=== PATIENT | male | born 2000 | race African-American/Black ===

== ENCOUNTER 2018-11-05 20:37 | Emergency (ER) | payer SELFPAY ==
[2018-11-05 21:14] VITALS: BP 124/64; PULSE 59; TEMP 98.2; BMI 22.1
--- NOTE | 2018-11-05 21:31 | PDOC ---
History of Present Illness - General Chief Complaint: Pain Stated Complaint: MOUTH PAIN Time Seen by Provider: 11/05/18 21:25 History Source: Patient - History of Present Illness Initial Comments: 11/05/18 21:35 18 year old male right upper canine dental caries reports pain for the last 3 months. patient was not evaluated by dentist due to lack of insurance. patient reports that he is insured. patient reports slight headache at this time pmhxL: 11/05/18 21:36 Past History - Past Medical History Allergies/Adverse Reactions: Allergies Allergy/AdvReac Type Severity Reaction Status Date / Time No Known Allergies Allergy Verified 11/05/18 21:14 Home Medications: Ambulatory Orders Amoxicillin - [Amoxicillin 875mg Tablet -] 875 mg PO BID #20 tablet 11/05/18 Ibuprofen [Ibu] 600 mg PO QID PRN #20 tablet 11/05/18 - Suicide/Smoking/Psychosocial Hx Smoking History: Never smoked Have you smoked in the past 12 months: No Information on smoking cessation initiated: No Hx Alcohol Use: No Drug/Substance Use Hx: No *Physical Exam - Vital Signs Last Vital Signs Temp Pulse Resp BP Pulse Ox 98.2 F 59 L 18 124/64 98 11/05/18 21:07 11/05/18 21:07 11/05/18 21:07 11/05/18 21:07 11/05/18 21:07 - Physical Exam General Appearance: Yes: Appropriately Dressed HEENT: positive: Other (fractured right upper canine with dental carries. no facial edema, gum edema) Integumentary: positive: Normal Color, Dry, Warm Neurologic: positive: boat buffer plastic II-XII NML intact, Fully Oriented, Alert, Normal Mood/ Affect, Normal Response, Motor Strength 5/5, Finger to Nose (intact), Other (no neck pain) Moderate Sedation - Procedure Monitoring Vital Signs: Procedure Monitoring Vital Signs Temperature 98.2 F 11/05/18 21:07 Pulse Rate 59 L 11/05/18 21:07 Respiratory Rate 18 11/05/18 21:07 Blood Pressure 124/64 11/05/18 21:07 O2 Sat by Pulse Oximetry (%) 98 11/05/18 21:07 *DC/Admit/Observation/Transfer Diagnosis at time of Disposition: Pain, dental, Infected dental caries - Discharge Dispostion Disposition: HOME - Prescriptions Prescriptions: Amoxicillin - [Amoxicillin 875mg Tablet -] 875 mg PO BID #20 tablet Ibuprofen [Ibu] 600 mg PO QID PRN #20 tablet PRN Reason: Pain - Referrals - Patient Instructions Printed Discharge Instructions: DI for Tooth Decay Additional Instructions: please follow up with dentist as soon as possible. - Post Discharge Activity Forms/Work/School Notes: Back to Work
[2018-11-05] MEDS ORDERED: IBUPROFEN 600 MG TABLET (FP) PO ONE ×2 (21:35→21:36)
== END 2018-11-05 21:41 | disposition home or self-care (01) ==
LOC: JERFT 20:37
DX: K08.89 Other specified disorders of teeth and supporting structures (principal)
CPT/HCPCS: 99281-25

== ENCOUNTER 2018-11-18 21:47 | Observation (INO) | payer MEDICARE ==
[2018-11-18] MEDS ORDERED: SODIUM CHLORIDE 0.9% 500 ML INFUS.BAG IV ONE (23:24)
[2018-11-18] MEDS ORDERED: ACETAMINOPHEN 1000 MG/100 ML VIAL (NON FORMULARY) IVPB ONE (23:24)
--- NOTE | 2018-11-18 23:32 | PDOC ---
History of Present Illness - General Chief Complaint: Headache Stated Complaint: Headache Time Seen by Provider: 11/18/18 23:15 History Source: Patient Exam Limitations: No Limitations - History of Present Illness Initial Comments: 11/18/18 23:25 18YOM with h/o dental caries and recently diagnosed dental infection (placed on amoxicillin and has been taking it as prescribed, on day 7, has no insurance and has not been able to f/u) who p/w continued OWEN for the past week, worse today, frontal and bitemporal and throbbing, worsens with light and noise, also with associated lightheadedness, pre-syncope, occasional palpitations, mental fogginess. Denies ever having these symptoms before. Denies f/c/n/v/d/c, dysuria , numbness/tingling/focal weakness, or other symptoms. Has no regular medical care 2/2 insurance issues. Past History - Past Medical History Allergies/Adverse Reactions: Allergies Allergy/AdvReac Type Severity Reaction Status Date / Time No Known Allergies Allergy Verified 11/19/18 01:54 Home Medications: Ambulatory Orders Amoxicillin - [Amoxicillin 875mg Tablet -] 875 mg PO BID #20 tablet 11/05/18 Ibuprofen [Ibu] 600 mg PO QID PRN #20 tablet 11/05/18 - Suicide/Smoking/Psychosocial Hx Smoking History: Never smoked Have you smoked in the past 12 months: No Hx Alcohol Use: No Drug/Substance Use Hx: No Review of Systems - Review of Systems Able to Perform ROS?: Yes Comments:: 11/18/18 23:27 GEN: no fever, chills, malaise, generalized weakness, or weight change HEENT: dental pain, no ear pain, sore throat, vision change, or eye pain CV: palpitations, lightheadedness, pre-syncope, chest pain, no syncope, or edema RESP: no cough, wheezing, or SOB GI: no abdominal pain, nausea, vomiting, diarrhea, constipation, or white/black/ bloody stool : no dysuria, hematuria, incontinence, retention, bleeding, or discharge MSK: no neck/back pain, muscle weakness/pain, or joint swelling/pain NEURO: headache, seizure, vertigo, numbness, tingling, or focal weakness PSYCH: no substance use, no behavior change SKIN: no jaundice, no rash ROS otherwise negative except as noted in HPI *Physical Exam - Vital Signs Last Vital Signs Temp Pulse Resp BP Pulse Ox 97.7 F 75 19 125/63 100 11/18/18 22:41 11/18/18 22:41 11/18/18 22:41 11/18/18 22:41 11/18/18 22:41 11/18/18 23:28 GENERAL: well-appearing, A/Ox4, no distress, answers questions appropriately, girlfriend at bedside HEENT: tenderness to percussion tooth #7, tenderness to gingiva at this location , no gingival swelling, no abscess, no obvious decay, PERRLA, EOMI, moist mucous membranes NECK/BACK: no midline ttp, no spinal stepoff or deformity, no hematoma, full ROM , neck supple CARDIOVASCULAR: regular rate/rhythm, normal S1S2, no MGR, strong peripheral pulses, capillary refill <2 seconds, extremities wwp, no edema LUNGS/RESPIRATORY: no respiratory distress, CTAB GI/ABDOMEN: symmetric [id number], normoactive BS, soft, no ttp, no midline pulsatile masses : no CVA tenderness EXTREMITIES: no muscle atrophy, no acute deformity, no edema SKIN: warm and dry, no pallor, no jaundice, no rash, no bruising, no skin breakdown, no cuts, no lesions NEUROLOGICAL: GCS 15, CN II-XII grossly intact, 5/5 strength proximally and distally, no facial droop Moderate Sedation - Procedure Monitoring Vital Signs: Procedure Monitoring Vital Signs Temperature 97.7 F 11/18/18 22:41 Pulse Rate 75 11/18/18 22:41 Respiratory Rate 19 11/18/18 22:41 Blood Pressure 125/63 11/18/18 22:41 O2 Sat by Pulse Oximetry (%) 100 11/18/18 22:41 Heart Score/ECG Review #1 11/19/18 00:21 Sinus rhythm, bradycardia at 57, short WV of 110, normal axis and normal QTc, no ischemic ST-T changes ED Treatment Course - LABORATORY CBC & Chemistry Diagram: 11/18/18 23:40 11/18/18 23:40 Medical Decision Making - Medical Decision Making 11/18/18 23:30 Pt p/w headache, lightheadedness, mental fogginess, palpitations, dental pain. Requests labs as he is concerned about his symptoms and has no PCP 2/2 insurance issues. Initial Vital Signs Temp Pulse Resp BP Pulse Ox 97.7 F 75 19 125/63 100 11/18/18 22:41 11/18/18 22:41 11/18/18 22:41 11/18/18 22:41 11/18/18 22:41 Exam: As noted in Physical Exam section. DDX IBNLT: dentalgia, dental fracture, dental caries, dental abscess (periapical ), gingivitis, Nakul angina, parotitis, W/U ordered: Labs as noted below, EKG TX ordered: [facility], [facility] EKG: Reviewed; results as noted in ECG Review section. Laboratory Tests 11/18/18 11/18/18 11/19/18 23:40 23:40 00:00 WBC 6.8 RBC 4.79 Hgb 14.0 Hct 40.5 MCV 84.5 MCH 29.3 MCHC 34.7 RDW 13.4 Plt Count 284 MPV 7.8 Absolute Neuts (auto) 3.3 Neutrophils % 49.2 Lymphocytes % 37.9 Monocytes % 6.7 Eosinophils % 5.5 H Basophils % 0.7 Nucleated RBC % 0 Sodium 138 Potassium 4.2 Chloride 102 Carbon Dioxide 29 Anion Gap 7 L BUN 17 Creatinine 1.0 Creat Clearance w eGFR > 60 Random Glucose 89 Calcium 9.0 Total Bilirubin 0.3 AST 41 H ALT 111 H Alkaline Phosphatase 80 Creatine Kinase 866 H Creatine Kinase Index 0.5 CK-MB (CK-2) 4.8 H Troponin I < 0.02 Total Protein 7.9 Albumin 4.3 Reassessment: Repeat VS: 11/19/18 01:50 The Pt is unsafe for discharge at this time. They require further hospital observation, workup, and treatment. [facility]. Blank Decision to Admit order is placed per ED protocol. 11/19/18 01:57 *DC/Admit/Observation/Transfer Diagnosis at time of Disposition: Dentalgia, Lightheadedness, Palpitations, Shortened WV interval Headache Qualifiers: Headache type: unspecified Headache chronicity pattern: acute headache Intractability: not intractable Qualified Code(s): R51 - Headache Chest pain Qualifiers: Chest pain type: unspecified Qualified Code(s): R07.9 - Chest pain, unspecified - Discharge Dispostion Disposition: HOME Condition at time of disposition: Stable Decision to Admit order: Yes - Referrals Referrals: Nik Rosales MD [Staff Physician] - [facility] [place] [facility] [place] [Provider Group] - Patient Instructions Additional Instructions: You were seen in the ER for dental pain and headache. We did an exam, labs, an EKG, and gave you medicines, which helped with your symptoms. After our assessment, we do not believe you are having a medical emergency at this time, and we believe you are safe to go home. We know that insurance issues make it difficult, but it is important that you follow up with a dentist and with a regular primary doctor. We are giving you referral information for our outpatient clinic. Call their clinic as soon as possible, tell them you were seen in the ER, and tell them you need an appointment. If you have any new or worsening symptoms, especially worsened dental pain or swelling, evidence of infection, inability to swallow, difficulty breathing, fever, chills, worsening headache, passing out, or other symptoms, please come back to the ER at any time (24 hours a day). If you are having severe or life threatening symptoms, or symptoms that make it unsafe to drive or have someone drive you, please call 911. You have some small changes on your EKG that you need follow-up on. Please follow up as an outpatient with a plate glass polisher to review your EKG and repeat it. We do not believe this is an emergency concern. We are giving you outpatient referral info for a plate glass polisher. - Post Discharge Activity
[2018-11-18] MEDS ORDERED: ACETAMINOPHEN INJECTION 100 ML IVPB ONE (23:46)
[2018-11-18 23:50] LABS: BASO % 0.7 % (0-2.0); EOS % 5.5 % (0-4.5); HEMATOCRIT 40.5 % (35.4-49); LYMPH % 37.9 % (8-40); MCH 29.3 pg (25.7-33.7); MCHC 34.7 g/dl (32.0-35.9); MEAN CELL VOLUME 84.5 fl (80-96); MEAN PLT VOLUME 7.8 fl (7.5-11.1); MONO % 6.7 % (3.8-10.2); NEUT % 49.2 % (42.8-82.8); PLATELET COUNT 284 K/MM3 (134-434); RBC 4.79 M/mm3 (4.00-5.60); RDW 13.4 % (11.9-15.9); WHITE BLOOD COUNT 6.8 K/mm3 (4.0-10.0)
[2018-11-19 00:16] LABS: ALBUMIN 4.3 g/dl (3.4-5.0); ALK PHOS 80 U/L (45-117); ANION GAP 7 MMOL/L (8-16); BILIRUBIN,TOTAL 0.3 mg/dL (0.2-1); BLOOD UREA NITROGEN 17 mg/dL (7-18); CHLORIDE 102 mmol/L (98-107); CO2 29 mmol/L (21-32); GLUCOSE,RANDOM 89 mg/dL (74-106); POTASSIUM 4.2 mmol/L (3.5-5.1); SGOT/AST 41 U/L (15-37); SGPT/ALT 111 U/L (13-61); SODIUM 138 mmol/L (136-145); TOT PROT 7.9 g/dl (6.4-8.2)
[2018-11-19] MEDS ORDERED: SODIUM CHLORIDE 0.9% 500 ML INFUS.BAG IV ONE (01:50)
--- NOTE | 2018-11-19 03:54 | PN ---
Teaching Attending Note Name of Resident: Marli Galvez ATTENDING PHYSICIAN STATEMENT I saw and evaluated the patient. I reviewed the resident's note and discussed the case with the resident. I agree with the resident's findings and plan as documented. SUBJECTIVE: Seen and examined; please refer to resident note for additional historical information. Briefly, this is a 18 y/o with a history of cavities who is finishing Augmentin for tooth infection who presents with headache and transient chest pain yesterday that is chronic for him that he will get 'every so often'; he doesn't take any other medications. The headache was today with no red flag signs, no fnd, no LOC. No dizziness/syncope/presyncope. Has been getting headaches for a month. The CP was described as very short, self- limiting, and shock-like; it is quite atypical and he doesn't have any risk factors. Denies alcohol, drug, tobacco use. Symptoms are now resolved. ER concerned that EKG represents WPW; NC 110 and QRS not prolonged. CKMb slightly elevated, CK slightly elevated, slight tranaminitis noted. 10 sys ROS done and negative aside from HPI PMH and PSH reviewed Social history denies alcohol, tobacco, drug use FH negative for any history of WPW, premature cardiac disease Medication list reviewed; reconciliaton pending OBJECTIVE: VS, labs, imaging reviewed NAD, AAO, resting in bed RRR s1/2 no mgr Lungs CTAB w/ sym exp NT ND +BS CN2-12 wnl, no fnd, moves all 4 extremities Normal mood, appropriate behavior Labs reviewed; significant for slight transaminitis with normal bilirubin, no wbc, CKMB and CK slightly elevated, normal troponin. Unremarkable CBC EKG reviewed; NC 110, no leatha delta waves, QRS 98. Echo pending On telemetry; review pending ASSESSMENT AND PLAN: Patient presents with headache and has been having off and on very atypical shock like CP for quite some time; ER concerned for WPW as positive CK 1) Concern of WPW -Likely doesn't represent WPW with normal NC at 100 without delta waves and normal QRS; can monitor on tele but unlikely 2) Elevated CK/CKMb -Negative troponin; trend, monitor tele, check an echo. Given concern can have CV clear him. 3) Atypical CP -Doesn't appear to be cardiac by history but will r/o; well's score 0; no elements GERD, etc. Likely can get OP workup. He has NOT had CP today per what he informed me, rather the day prior to admission 4) Dental Carries -Complete abx; encouraged to FU with dentistry FENA -PO fluids -PRN replace -Regular Diet -As tolerated Full Code
[2018-11-19 05:11] VITALS: BP 102/39; PULSE 60; TEMP 97.4
--- NOTE | 2018-11-19 05:29 | HP ---
CHIEF COMPLAINT: OWEN, palpitations PCP: HISTORY OF PRESENT ILLNESS: 18 y/o M with hx dental caries, recent dental infection R incisor (on day 7 amox ), who presented to the ED for worsening OWEN over the past 2 weeks. States that his OWEN started 2 weeks ago, was in the frontal portion of his head and was a/w lightheadedness. During this time, endorsed intermittent "shock like" sensations in his chest, however never c/o chest pain. Denies recent drug use or sick contacts. No fam hx of cardiac issues, or recent stressors at work. Without fever, chills, SOB, chest pain or pressure, or changes in urinary or bowel function. ER course was notable for: (1) Ofirmev (2) NS x 2L (3) Recent Travel: denies PAST MEDICAL HISTORY: as above PAST SURGICAL HISTORY: denies Social History: works as a computer systems security administrator Smoking: denies Alcohol: denies Drugs: denies Family History: denies Allergies shellfish allergy; "many different types of reactions" unable to specify HOME MEDICATIONS: Home Medications Medication Instructions Recorded Amoxicillin - [Amoxicillin 875mg 875 mg PO BID #20 tablet 11/05/18 Tablet -] Ibuprofen [Ibu] 600 mg PO QID PRN #20 tablet 11/05/18 REVIEW OF SYSTEMS CONSTITUTIONAL: +lightheadedness Absent: fever, chills, diaphoresis, generalized weakness, malaise, loss of appetite, weight change HEENT: Absent: rhinorrhea, nasal congestion, throat pain, throat swelling, difficulty swallowing, mouth swelling, ear pain, eye pain, visual changes CARDIOVASCULAR: Absent: chest pain, syncope, palpitations, irregular heart rate, lightheadedness , peripheral edema RESPIRATORY: Absent: cough, shortness of breath, dyspnea with exertion, orthopnea, wheezing, stridor, hemoptysis GASTROINTESTINAL: Absent: abdominal pain, abdominal distension, nausea, vomiting, diarrhea, constipation, melena, hematochezia GENITOURINARY: Absent: dysuria, frequency, urgency, hesitancy, hematuria, flank pain, genital pain MUSCULOSKELETAL: Absent: myalgia, arthralgia, joint swelling, back pain, neck pain SKIN: Absent: rash, itching, pallor HEMATOLOGIC/IMMUNOLOGIC: Absent: easy bleeding, easy bruising, lymphadenopathy, frequent infections ENDOCRINE: Absent: unexplained weight gain, unexplained weight loss, heat intolerance, cold intolerance NEUROLOGIC: +headache Absent: focal weakness or paresthesias, dizziness, unsteady gait, seizure, mental status changes, bladder or bowel incontinence PSYCHIATRIC: Absent: anxiety, depression, suicidal or homicidal ideation, hallucinations. PHYSICAL EXAMINATION Vital Signs - 24 hr 11/18/18 11/19/18 22:41 05:10 Temperature 97.7 F 97.4 F L Pulse Rate 75 Pulse Rate [ 60 Right Radial] Respiratory 19 20 Rate Blood Pressure 125/63 Blood Pressure 102/39 L [Right Arm] O2 Sat by Pulse 100 97 Oximetry (%) GENERAL: Resting comfortably in bed. Awake, alert, and fully oriented, in no acute distress. HEAD: Normal with no signs of trauma. EYES: Pupils equal, round and reactive to light, extraocular movements intact, sclera anicteric, conjunctiva clear. EARS, NOSE, THROAT: Ears normal, nares patent, oropharynx clear without exudates. Moist mucous membranes. NECK: Normal range of motion, supple LUNGS: Breath sounds equal, clear to auscultation bilaterally. No wheezes, and no crackles. No accessory muscle use. HEART: Regular rate and rhythm, normal S1 and S2 without murmur, rub or gallop. ABDOMEN: Soft, nontender, not distended, normoactive bowel sounds, no guarding, no rebound, no masses. LOWER EXTREMITIES: 2+ pt pulses, warm, well-perfused. No calf tenderness. No peripheral edema. NEUROLOGICAL: Cranial nerves II-XII intact. Normal speech. Normal gait. PSYCHIATRIC: Cooperative. Laboratory Results - last 24 hr 11/18/18 11/18/18 11/19/18 23:40 23:40 00:00 WBC 6.8 RBC 4.79 Hgb 14.0 Hct 40.5 MCV 84.5 MCH 29.3 MCHC 34.7 RDW 13.4 Plt Count 284 MPV 7.8 Absolute Neuts (auto) 3.3 Neutrophils % 49.2 Lymphocytes % 37.9 Monocytes % 6.7 Eosinophils % 5.5 H Basophils % 0.7 Nucleated RBC % 0 Sodium 138 Potassium 4.2 Chloride 102 Carbon Dioxide 29 Anion Gap 7 L BUN 17 Creatinine 1.0 Creat Clearance w eGFR > 60 Random Glucose 89 Calcium 9.0 Total Bilirubin 0.3 AST 41 H ALT 111 H Alkaline Phosphatase 80 Creatine Kinase 866 H Creatine Kinase Index 0.5 CK-MB (CK-2) 4.8 H Troponin I < 0.02 Total Protein 7.9 Albumin 4.3 EKG: not concerning for WPW. QRS 98ms, MA 110ms. no delta waves, no ST-T wave changes. rate 57 ASSESSMENT/PLAN: 18 y/o M with hx dental caries, recent dental infection R incisor (on day 7 amox ), who presented to the ED for worsening OWEN over the past 2 weeks. #Recent OWEN -new OWEN over the past 2 weeks, gradually worsening. without recent trauma. no focal neuro deficits -f/u Head CT non-con r/o pathology, bleed #R/o WPW -EKG not concerning. QRS not widened, MA mildly shortened. no delta waves. no ST -T wave changes. -no fam hx of WPW, or cardiac hx -cardio consult: Dr. Bueno #Intermittent palpitations -f/u ECHO -repeat CK-MB -trend trops, (-) x 1 -tele monitoring #Elevated CK -cont to trend. no reason for elevation -will hydrate with LR 75 cc/hr #Transaminitis -denies alcohol use -recommend repeating LFTs -RUQ sono to check status of liver #recent dental infection -can continue course of amox; has completed 7 days thus far #F/E/N IV LR 75 cc/hr continue to follow lytes regular diet #PPX ambulate #Dispo tele obs Visit type - Emergency Visit Emergency Visit: Yes ED Registration Date: 11/19/18 Care time: The patient presented to the Emergency Department on the above date and was hospitalized for further evaluation of their emergent condition. - New Patient This patient is new to me today: Yes Date on this admission: 11/19/18 - Critical Care Critical Care patient: No
[2018-11-19] MEDS ORDERED: LACTATED RINGERS SOLUTION 1,000 ML/1,000 ML INFUS.BAG IV SCH (05:30)
[2018-11-19 08:07] LABS: ALBUMIN 3.7 g/dl (3.4-5.0); ALK PHOS 69 U/L (45-117); ANION GAP 6 MMOL/L (8-16); BILIRUBIN,TOTAL 0.3 mg/dL (0.2-1); BLOOD UREA NITROGEN 15 mg/dL (7-18); CALCIUM 8.3 mg/dL (8.5-10.1); CHLORIDE 107 mmol/L (98-107); CO2 27 mmol/L (21-32); GLUCOSE,RANDOM 91 mg/dL (74-106); POTASSIUM 4.2 mmol/L (3.5-5.1); SGOT/AST 32 U/L (15-37); SGPT/ALT 89 U/L (13-61); SODIUM 140 mmol/L (136-145); TOT PROT 6.5 g/dl (6.4-8.2)
--- NOTE | 2018-11-19 09:31 | CON.CARD ---
Cardiology Consult (text) - Consultation Consultation Note: Reason for Consult: Cardiac Evaluation HPI: 18 year old male with no significant past medical history presents with headache and chest pain. Patient in usual state of health until he developed a headache and nonexertional, nonpleuritic, nonradiating chest 'shocks.' Denies any associated lightheadedness, dizziness, chest pain, syncope, shortness of breath or diaphoresis. ECG with normal sinus rhythm. Troponin negatvie X2. CK elevated to 800s, CKMB slightly elevated. Cardiology consulted for further management. Past Medical History: None Past Surgical History: None Social History: Denies alcohol, drugs and tobacco. Family hx: no family hx of early CAD or SCD Physical Exam Vital Signs - 24 hr 11/18/18 11/19/18 22:41 05:10 Temperature 97.7 F 97.4 F L Pulse Rate 75 Pulse Rate [ 60 Right Radial] Respiratory 19 20 Rate Blood Pressure 125/63 Blood Pressure 102/39 L [Right Arm] O2 Sat by Pulse 100 97 Oximetry (%) Gen: well appearing male sitting upright in NAD HEENT: NC/AT. OP Clear, MMM Cardiac: S1/S2 no murmurs Pulm: clear breath sounds bilaterally. No rales. Ext: WWP. No Edema. Labs: Abnormal Lab Results 11/18/18 11/18/18 11/19/18 23:40 23:40 00:00 Eosinophils % 5.5 H Anion Gap 7 L Calcium AST 41 H ALT 111 H Creatine Kinase 866 H CK-MB (CK-2) 4.8 H 11/19/18 11/19/18 07:00 07:00 Eosinophils % Anion Gap 6 L Calcium 8.3 L AST ALT 89 H Creatine Kinase 643 H CK-MB (CK-2) 4.3 H 4.3 H ECG: normal sinus rhythm, VT 110. A/P: 18 year old male with no significant past medical history presents with headache and atypical chest pain. #Atypical Chest Pain Etiology: unclear. unlikely to be ischemic in nature given atypical symptoms. Workup: --ECG NSR, normal VT. --please obtain echocardiogram to assess for structural/valvular abnormalities --troponin negative X2 Treatment: --continue to monitor --ensure patient has 30 day event monitor with close follow-up with cardiology as outpatient #Elevated CK; normal Cr. Can rule out non-neuromuscular causes per primary team. If echocardiogram normal and no events on telemetry, patient can follow-up as an outpatient. Luther Cifuentes MD
--- NOTE | 2018-11-19 11:03 | DS ---
Physical Exam: SUBJECTIVE: Patient seen and examined in the ER awaiting bed assignment. Patient denies any headache, denies dizziness, no chest pain. denies any other malaise. wants to leave today, does not want to wait for an echocardiogram or be monitored on tele. Feels back to his normal. OBJECTIVE: patient signed AMA paperwork. verbalized understanding or risks of leaving AMA : sudden , cardiac arrhythmias. discussed cpk and need for echo. patient given physicians at [address] [facility] to follow up with. PCP referral also given. patient states he will get follow up labs outpatient. refusing anything else done here. I reviewed risks of leaving ama. took out his peripheral IV and discharged him AMA per his wishes. Vital Signs Period Temp Pulse Resp BP Sys/Henley Pulse Ox Last 24 Hr 97.4 F-97.7 F 60-75 19-20 102-125/39-63 97-100 PHYSICAL EXAM GENERAL: The patient is awake, alert, and fully oriented, in no acute distress. HEAD: Normal with no signs of trauma. EYES: PERRL, extraocular movements intact, sclera anicteric, conjunctiva clear. ENT: Ears normal, nares patent, oropharynx clear without exudates, moist mucous membranes. NECK: Trachea midline, full range of motion, supple. LUNGS: Breath sounds equal, clear to auscultation bilaterally HEART: Regular rate and rhythm ABDOMEN: Soft, nontender, nondistended, normoactive bowel sounds, no guarding, no rebound NEUROLOGICAL: Normal speech, gait not observed. PSYCH: Normal mood, normal affect. SKIN: Warm, dry, normal turgor, no rashes or lesions noted. LABS Laboratory Results - last 24 hr 11/18/18 11/18/18 11/19/18 23:40 23:40 00:00 WBC 6.8 RBC 4.79 Hgb 14.0 Hct 40.5 MCV 84.5 MCH 29.3 MCHC 34.7 RDW 13.4 Plt Count 284 MPV 7.8 Absolute Neuts (auto) 3.3 Neutrophils % 49.2 Lymphocytes % 37.9 Monocytes % 6.7 Eosinophils % 5.5 H Basophils % 0.7 Nucleated RBC % 0 Sodium 138 Potassium 4.2 Chloride 102 Carbon Dioxide 29 Anion Gap 7 L BUN 17 Creatinine 1.0 Creat Clearance w eGFR > 60 Random Glucose 89 Calcium 9.0 Total Bilirubin 0.3 AST 41 H ALT 111 H Alkaline Phosphatase 80 Creatine Kinase 866 H Creatine Kinase Index 0.5 CK-MB (CK-2) 4.8 H Troponin I < 0.02 Total Protein 7.9 Albumin 4.3 TSH 11/19/18 11/19/18 11/19/18 07:00 07:00 07:00 WBC RBC Hgb Hct MCV MCH MCHC RDW Plt Count MPV Absolute Neuts (auto) Neutrophils % Lymphocytes % Monocytes % Eosinophils % Basophils % Nucleated RBC % Sodium 140 Potassium 4.2 Chloride 107 Carbon Dioxide 27 Anion Gap 6 L BUN 15 Creatinine 1.0 Creat Clearance w eGFR > 60 Random Glucose 91 Calcium 8.3 L Total Bilirubin 0.3 AST 32 ALT 89 H Alkaline Phosphatase 69 Creatine Kinase 643 H Creatine Kinase Index 0.6 CK-MB (CK-2) 4.3 H 4.3 H Troponin I 0.02 Total Protein 6.5 Albumin 3.7 TSH 1.22 HOSPITAL COURSE: Date of Admission:11/19/18 Date of Discharge: 11/19/18 AMA NOTE: Patient seen by tile inspector. Had a negative head CT and negative u/s of abdomen except for small gallstone. Refusing any further workup. patient signed AMA paperwork. verbalized understanding or risks of leaving AMA : sudden , cardiac arrhythmias. discussed cpk and need for echo and need for follow up lab work. patient given physicians at [facility] [facility] to follow up with. PCP referral also given. patient states he will get follow up labs outpatient. refusing anything else done here. I reviewed risks of leaving ama. took out his peripheral IV and discharged him AMA per his wishes. He full capacity to make his own medical decisions and I asked him to return if he has any chest pain. Minutes to complete discharge: 40 Discharge Summary Reason For Visit: PALPITATIONS,LIGHHEADEDNESS,HEADACHE,SHORTENED Current Active Problems Chest pain (Acute) Headache (Acute) Lightheadedness (Acute) Pain, dental (Acute) Palpitations (Acute) Shortened CA interval (Acute) Condition: Guarded - Instructions Diet, Activity, Other Instructions: Patient left AMA. refused to stay for echo. wants to follow up outpatient. Referrals: [facility] at [place] [Provider Group] Nik Rosales MD [Staff Physician] - Disposition: AGAINST MEDICAL ADVICE - Home Medications Comprehensive Discharge Medication List: Ambulatory Orders Amoxicillin - [Amoxicillin 875mg Tablet -] 875 mg PO BID #20 tablet 11/05/18 Ibuprofen [Ibu] 600 mg PO QID PRN #20 tablet 11/05/18 This patient is new to me today: Yes Date on this admission: 11/19/18 Emergency Visit: Yes ED Registration Date: 11/19/18 Care time: The patient presented to the Emergency Department on the above date and was hospitalized for further evaluation of their emergent condition. Critical Care patient: No - Discharge Referral Referred to [facility] Yes Physician Referral: Karen Angel MD ([facility])
--- NOTE | 2018-11-19 13:26 | EKG ---
Test Reason : Blood Pressure : / mmHG Vent. Rate : 057 BPM Atrial Rate : 057 BPM P-R Int : 110 ms QRS Dur : 098 ms QT Int : 404 ms P-R-T Axes : 031 052 023 degrees QTc Int : 393 ms SINUS BRADYCARDIA WITH SHORT UT OTHERWISE NORMAL ECG NO PREVIOUS ECGS AVAILABLE Confirmed by ABE ORR MD ([id number]) on 11/19/2018 1:26:06 PM Referred By: Confirmed By:ABE ORR MD
== END 2018-11-19 11:05 | disposition left against medical advice (07) ==
LOC: JER 21:47 → JERBED 11-19 01:48
PROVIDERS: ADMIT Internal Medicine; ATTEND Nurse Practitioner Family
PROC: 3E033NZ Introduction of Analgesics, Hypnotics, Sedatives into Peripheral Vein, Percutaneous Approach (ICD-10-PCS; principal; 2018-11-19)
PROC: 3E0337Z Introduction of Electrolytic and Water Balance Substance into Peripheral Vein, Percutaneous Approach (ICD-10-PCS; 2018-11-19)
DX: R07.89 Other chest pain (principal); K08.89 Other specified disorders of teeth and supporting structures; R42 Dizziness and giddiness; R00.2 Palpitations; R94.31 Abnormal electrocardiogram [ECG] [EKG]; R74.8 Abnormal levels of other serum enzymes; K02.9 Dental caries, unspecified; R51 Headache; R74.0 Nonspecific elevation of levels of transaminase and lactic acid dehydrogenase [LDH]
CPT/HCPCS: 36415; 70450-TC; 76705-TC; 80053; 82550; 82553; 84443; 84484; 85025; 93005; 93010; 96374; 99283-25; G0378; J0131

== ENCOUNTER 2018-11-23 07:54 | Emergency (ER) | payer SELFPAY ==
--- NOTE | 2018-11-23 08:28 | PDOC ---
History of Present Illness - General Chief Complaint: Chest Pain Stated Complaint: CHEST DISCOMFORT Time Seen by Provider: 11/23/18 08:00 History Source: Patient - History of Present Illness Timing/Duration: reports: other Associated Symptoms: reports: chest pain/soreness, shortness of breath Past History - Past Medical History Allergies/Adverse Reactions: Allergies Allergy/AdvReac Type Severity Reaction Status Date / Time shellfish derived Allergy Verified 11/23/18 07:56 Home Medications: Ambulatory Orders Amoxicillin - [Amoxicillin 875mg Tablet -] 875 mg PO BID #20 tablet 11/05/18 Ibuprofen [Ibu] 600 mg PO QID PRN #20 tablet 11/05/18 Anemia: No Asthma: No Cancer: No Cardiac Disorders: No CVA: No COPD: No CHF: No DVT: No Diabetes: No Dialysis: No GI Disorders: No Disorders: No HTN: No Hypercholesterolemia: No Kidney Stones: No Liver Disease: No Psychiatric Problems: No Seizures: No Thyroid Disease: No Lung CA: No - Immunization History Immunization Up to Date: Yes - Suicide/Smoking/Psychosocial Hx Smoking History: Never smoked Have you smoked in the past 12 months: No Hx Alcohol Use: No Drug/Substance Use Hx: No Review of Systems - Review of Systems Constitutional: No: Chills, Fever Respiratory: Yes: Symptoms reported. No: Cough Cardiac (ROS): Yes: Chest Pain, Palpitations. No: Irregular Heart Rate, Lightheadedness, Syncope *Physical Exam - Vital Signs Last Vital Signs Temp Pulse Resp BP Pulse Ox 98.2 F 79 17 133/73 100 11/23/18 07:57 11/23/18 07:57 11/23/18 07:57 11/23/18 07:57 11/23/18 07:57 - Physical Exam General Appearance: Yes: Appropriately Dressed. No: Apparent Distress HEENT: positive: Normal Voice Respiratory/Chest: positive: Chest Tender, Lungs Clear. negative: Normal Breath Sounds Cardiovascular: positive: Regular Rate, S1, S2 Extremity: positive: Normal Inspection Integumentary: positive: Dry, Warm Neurologic: positive: Fully Oriented, Alert, Normal Mood/Affect Moderate Sedation - Procedure Monitoring Vital Signs: Procedure Monitoring Vital Signs Temperature 98.2 F 11/23/18 07:57 Pulse Rate 79 11/23/18 07:57 Respiratory Rate 17 11/23/18 07:57 Blood Pressure 133/73 11/23/18 07:57 O2 Sat by Pulse Oximetry (%) 100 11/23/18 07:57 ED Treatment Course - LABORATORY CBC & Chemistry Diagram: 11/23/18 08:43 11/23/18 08:43 - RADIOLOGY Radiology Studies Ordered: Category Date Time Status CHEST PA & LAT [RAD] Stat Radiology 11/23/18 08:18 Ordered Medical Decision Making - Medical Decision Making 11/23/18 08:38 18 yo M, endorses h/o a "murmur", here w sob. Pt reports that for the past week , he has had intermittent e/o sob, described as "difficulty catching my breath" . States episode is present regardless of position and last for ~5 minutes. Denies acute CP but reports chronic intermittent "electric shocks" to his chest. Decided to come in this am because he awoke w/ palpitations and worsening sob. Sxs have since improved. Denies diaphoresis, syncope, n/v, leg pain or swelling. Denies tob hx or illicit drug use. No obvious RF for DVT/PE. Of note, pt was seen for similar sxs 2 days ago at [facility], labs in ED only remarkable for elevated CK. Seen by cards who rec admission for echo and arrangement holter. However, pt signed out AMA because " I didn't want to stay until Wednesday for tests" per pt See exam Atypical CP w/ SOB S/p cards eval in ED but AMA 2 days ago prior to echo/holter Stable w/ EKG demonstrating + LVH -labs -cards c/s to arrange ECHO in ED 11/23/18 16:53 Echo read as unremarkable. As per cards c/w, pt can be discharged to f/u with cards for out pt Holter. Pt satisfied w/ plan. Asx at this time. Reasons to return d/w pt. *DC/Admit/Observation/Transfer Diagnosis at time of Disposition: Shortness of breath - Discharge Dispostion Disposition: HOME Condition at time of disposition: Stable - Referrals Referrals: Sarbjit Vincent MD [Staff Physician] - - Patient Instructions Printed Discharge Instructions: DI for Atypical Chest Pain Additional Instructions: Your labs and echocardiogram was normal today. You need close follow up with cardiology for a 30 day holter monitor Please call Dr Vincent tomorrow for an appointment this week - Post Discharge Activity
--- NOTE | 2018-11-23 08:43 | PDOC ---
*Physical Exam - Vital Signs Last Vital Signs Temp Pulse Resp BP Pulse Ox 98.2 F 79 17 133/73 100 11/23/18 07:57 11/23/18 07:57 11/23/18 07:57 11/23/18 07:57 11/23/18 07:57 - Physical Exam Comments: 11/23/18 08:42 The patient was examined by [ANDRES Salas] under my direct supervision. I personally evaluated the patient. I concur with the above findings and the plan of care. ED Treatment Course - LABORATORY CBC & Chemistry Diagram: 11/23/18 08:43 11/23/18 08:43 *DC/Admit/Observation/Transfer Diagnosis at time of Disposition: Shortness of breath - Discharge Dispostion Disposition: HOME Condition at time of disposition: Stable - Referrals Referrals: Sarbjit Vincent MD [Staff Physician] - - Patient Instructions Printed Discharge Instructions: DI for Atypical Chest Pain Additional Instructions: Your labs and echocardiogram was normal today. You need close follow up with cardiology for a 30 day holter monitor Please call Dr Vincent tomorrow for an appointment this week - Post Discharge Activity
[2018-11-23 08:58] LABS: BASO % 0.6 % (0-2.0); EOS % 3.9 % (0-4.5); HEMATOCRIT 42.4 % (35.4-49); HEMOGLOBIN 14.6 GM/dL (11.7-16.9); LYMPH % 29.5 % (8-40); MCH 29.2 pg (25.7-33.7); MCHC 34.5 g/dl (32.0-35.9); MEAN CELL VOLUME 84.8 fl (80-96); MEAN PLT VOLUME 7.9 fl (7.5-11.1); PLATELET COUNT 257 K/MM3 (134-434); RDW 13.6 % (11.9-15.9); WHITE BLOOD COUNT 6.4 K/mm3 (4.0-10.0)
[2018-11-23 09:17] LABS: COCAINE, UR NEGATIVE ng/ml (CUTOFF=300); METHADONE, UR NEGATIVE ng/ml (CUTOFF=300); OPIATES, URI NEGATIVE ng/ml (CUTOFF=300); PHENCYCLIDINE,URINE NEGATIVE ng/ml (CUTOFF=25); URINE AMPHETAMINES NEGATIVE ng/ml (CUTOFF=500); URINE BARBITURATES NEGATIVE ng/ml (CUTOFF=200); URINE BENZODIAZEPINES NEGATIVE ng/ml (CUTOFF=200)
[2018-11-23 10:39] LABS: ALBUMIN 4.4 g/dl (3.4-5.0); ALK PHOS 75 U/L (45-117); ANION GAP 4 MMOL/L (8-16); BILIRUBIN,TOTAL 0.4 mg/dL (0.2-1); BLOOD UREA NITROGEN 12 mg/dL (7-18); CALCIUM 8.9 mg/dL (8.5-10.1); CHLORIDE 103 mmol/L (98-107); CO2 29 mmol/L (21-32); GLUCOSE,RANDOM 89 mg/dL (74-106); POTASSIUM 4.9 mmol/L (3.5-5.1); SGOT/AST 48 U/L (15-37); SGPT/ALT 87 U/L (13-61); SODIUM 136 mmol/L (136-145); TOT PROT 8.1 g/dl (6.4-8.2)
--- NOTE | 2018-11-23 11:59 | EKG ---
Test Reason : Blood Pressure : / mmHG Vent. Rate : 070 BPM Atrial Rate : 070 BPM P-R Int : 114 ms QRS Dur : 102 ms QT Int : 378 ms P-R-T Axes : 051 065 032 degrees QTc Int : 408 ms NORMAL SINUS RHYTHM MINIMAL VOLTAGE CRITERIA FOR LVH, MAY BE NORMAL VARIANT BORDERLINE ECG WHEN COMPARED WITH ECG OF 19-NOV-2018 00:21, NO SIGNIFICANT CHANGE WAS FOUND Confirmed by ANIBAL URIBE, ZENIA ([id number]) on 11/23/2018 11:59:01 AM Referred By: Confirmed By:ZENIA BARNETT MD
--- NOTE | 2018-11-23 13:21 | CON.CARD ---
Consult Consult Specialty:: Cardiology Reason for Consultation:: Palpitations - History of Present Illness Chief Complaint: Palpitations History of Present Illness: 18 year old male with no significant pmhx presenting with palpitations. Patient awoke from sleep with palpitations/racing heart and sob. Called EMS. Symptoms still present when EMS arrived by improving. Resolved on there own. Reports lasting 5-10minutes. Says never happened before. Did come to ER few days ago for some occasional episodes of electric pains in his chest that last seconds but that did not occur today. Denies any syncope or near syncope today. No previous palpitations. No family history of sudden . Denies any toxic habits. Exercises and plays basketball frequently with no complaints or limitations. Last time played was 2 weeks ago due to holidays and work schedule. Currently asymptomatic. No pnd, orthopnea, or edema. To note, reports on amoxicillin for tooth abscess. Denies any GI symptoms Denies any muscle pain. - History Source History Provided By: Patient, Medical Record - Alcohol/Substance Use Hx Alcohol Use: No - Smoking History Smoking history: Never smoked Have you smoked in the past 12 months: No Home Medications - Allergies Allergies/Adverse Reactions: Allergies Allergy/AdvReac Type Severity Reaction Status Date / Time shellfish derived Allergy Verified 11/23/18 07:56 - Home Medications Home Medications: Ambulatory Orders Amoxicillin - [Amoxicillin 875mg Tablet -] 875 mg PO BID #20 tablet 11/05/18 Ibuprofen [Ibu] 600 mg PO QID PRN #20 tablet 11/05/18 Vital Signs: Vital Signs Temperature 98.2 F 11/23/18 07:57 Pulse Rate 79 11/23/18 07:57 Respiratory Rate 17 11/23/18 07:57 Blood Pressure 133/73 11/23/18 07:57 O2 Sat by Pulse Oximetry (%) 100 11/23/18 07:57 Constitutional: Yes: No Distress. No: Mild Distress Neck: Yes: WNL Respiratory: Yes: CTA Bilaterally Gastrointestinal: Yes: Soft Cardiovascular: Yes: Regular Rate and Rhythm JVD: No Carotid Bruit: No PMI: Non-Displaced Heart Sounds: Yes: S1, S2 Murmur: No: Systolic Murmur Extremities: Yes: WNL Edema: No - Other Data Labs, Other Data: CBC, BMP 11/23/18 08:43 11/23/18 08:43 Troponin, BNP 11/23/18 08:43 Troponin I < 0.02 Troponin, BNP 11/23/18 08:43 Troponin I < 0.02 Imaging - Results Chest X-ray: Report Reviewed EKG: Image Reviewed Assessment/Plan 18 year old male with no significant pmhx presenting with palpitations. Patient awoke from sleep with palpitations/racing heart and sob. 1) Palpitations EKG sinus rhythm with no significant ST abnormalities BP stable Trop negative CK mildly elevated -Symptoms highly unlikely to be ischemic in nature. No family history of sudden . Excellent exercise tolerance with no symptoms in the past. No syncope. Has been asymptomatic in the ER with no recurrence. Physical exam is unremarkable. Check tft's Underwent echocardiogram today and if this is unremarkable than would plan for skilled nursing 30 day event monitor. Issue is patient is uncertain if insurance is active or not. Would have social work clarify. If no insurance, than would admit to telemetry for 24 hours and have social work f/u on insurance so can arrange for event monitor.
--- NOTE | 2018-11-23 15:38 | ECHO ---
Name: NATE ORTEGA Exam:Adult Echocardiogram Study Date: 11/23/2018 12:08 PM Age: 18 yrs Reason For Study: SOB WITH LVH ON ALISA DESAI HCM Height: 70 in Weight: 140 lb BSA: 1.8 m2 MMode/2D Measurements & Calculations IVSd: 0.61 cm Ao root diam: 2.6 cm LVIDd: 5.1 cm LA dimension: 2.8 cm LVIDs: 3.1 cm LVPWd: 0.61 cm EDV(Teich): 124.9 ml LVOT diam: 2.3 cm ESV(Teich): 37.5 ml TAPSE: 3.2 cm Doppler Measurements & Calculations MV E max bo: 77.5 cm/sec Ao V2 max: 138.1 cm/sec MV A max bo: 32.6 cm/sec Ao max P.6 mmHg MV E/A: 2.4 MV dec time: 0.31 sec YULISA(V,D): 2.8 cm2 LV V1 max P.8 mmHg MR max bo: 449.2 cm/sec LV V1 max: 97.2 cm/sec MR max P.7 mmHg Med Peak E' Ob: 15.2 cm/sec Med E/e': 5.1 Lat Peak E' Bo: 16.0 cm/sec Lat E/e': 4.8 Left Ventricle The left ventricular size, thickness and function are normal. Ejection Fraction = 60%. Left Ventricul ar Filling pattern is normal for age. The left ventricular wall motion is normal. Right Ventricle The right ventricle is normal size. The right ventricular systolic function is normal. Atria Normal left and right atrial size and function. Mitral Valve There is trivial mitral valve thickening. There is mild mitral regurgitation. Tricuspid Valve There is trace tricuspid regurgitation. Great Vessels The aortic root is normal size. Pericardium/Pleura There is no pericardial effusion. Interpretation Summary Ejection Fraction = 60%. Left Ventricular Filling pattern is normal for age. The left ventricular wall motion is normal. The right ventricle is normal size. The right ventricular systolic function is normal. Normal left and right atrial size and function. There is trivial mitral valve thickening. There is mild mitral regurgitation. There is trace tricuspid regurgitation. The aortic root is normal size. There is no pericardial effusion. Napoleon Beavers MD 11/23/2018 03:37 PM
[2018-11-23 16:16] VITALS: BP 112/59; PULSE 98; TEMP 98
== END 2018-11-23 17:25 | disposition home or self-care (01) ==
LOC: JER 07:54
DX: R06.02 Shortness of breath (principal)
CPT/HCPCS: 36415; 71046-TC-FY; 80053; 80307; 82550; 82553; 84484; 85025; 93005; 93010; 93306-TC; 99284-25

== ENCOUNTER 2019-02-05 18:35 | Emergency (ER) | payer OTHER ==
[2019-02-05 18:43] VITALS: BP 121/34; PULSE 66; TEMP 98
--- NOTE | 2019-02-05 21:14 | PDOC ---
History of Present Illness - General Chief Complaint: Palpitations Stated Complaint: CHEST PAIN Time Seen by Provider: 02/05/19 20:50 History Source: Patient Exam Limitations: No Limitations - History of Present Illness Initial Comments: 02/05/19 21:06 Patient is a 18 year old male with no pmhx c/o of palpitations, shortness of breath, lightheadedness, chest pain which has been intermittent X >3 months. Patient states that he occasionally has these symptoms on awakening from sleep, or just sitting tying to do nothing. States he has issue with anxiety but just wanted to come to check him self. States the chest pain is pressure, 4/10, nonpleuritic, nonexertional, assoc/w sob, sweaty palms, lightheadness. He has been evaluated in the ED and by cardiology at this hosp for the chest pain but has not followed up with cardiology for additional workup. States has that he has symptoms last night at 3 am in the morning, and today has symptoms which started about 4 pm, episode lasting for a few minutes. He currently has no symptoms. Famhx neg for CVA/MN, DVT/PE. No sudden cardiac . No recent travel. PMHX: neg PSOCHX: neg cig, neg drug, neg etoh ALL: NKDA GENERAL/CONSTITUTIONAL: No fever or chills. No weakness. No weight change. HEAD, EYES, EARS, NOSE AND THROAT: No change in vision. No ear pain or discharge. No sore throat. CARDIOVASCULAR: (+) chest pain or shortness of breath. RESPIRATORY: No cough, wheezing, or hemoptysis. GASTROINTESTINAL: No nausea, vomiting, diarrhea or constipation. No rectal bleeding. GENITOURINARY: No dysuria, frequency, or change in urination. MUSCULOSKELETAL: No joint or muscle swelling or pain. No neck or back pain. SKIN AND BREASTS: No rash or easy bruising. NEUROLOGIC: (+) headache, vertigo, loss of consciousness, or loss of sensation. PSYCHIATRIC: No depression (+) anxiety. ENDOCRINE: No increased thirst. No abnormal weight change. HEMATOLOGIC/LYMPHATIC: No anemia, easy bleeding, or history of blood clots. ALLERGIC/IMMUNOLOGIC: No hives or skin allergy. No latex allergy. GENERAL: The patient is awake, alert, and fully oriented, in no acute distress. HEAD: Normal with no signs of trauma. EYES: Pupils equal, round and reactive to light, extraocular movements intact, sclera anicteric, conjunctiva clear. ENT: Ears normal, nares patent, oropharynx clear without exudates. Moist mucous membranes. NECK: Normal range of motion, supple without lymphadenopathy, JVD, or masses. LUNGS: Breath sounds equal, clear to auscultation bilaterally. No wheezes, and no crackles. HEART: Regular rate and rhythm, normal S1 and S2 without murmur, rub. ABDOMEN: Soft, nontender, normoactive bowel sounds. No guarding, no rebound. No masses. EXTREMITIES: Normal range of motion, no edema. No clubbing or cyanosis. No cords, erythema, or tenderness. NEUROLOGICAL: Cranial nerves II through XII grossly intact. Normal speech, normal gait. PSYCH: Normal mood, normal affect. SKIN: Warm, Dry, normal turgor, no rashes or lesions noted. Past History - Past Medical History Allergies/Adverse Reactions: Allergies Allergy/AdvReac Type Severity Reaction Status Date / Time shellfish derived Allergy Verified 02/05/19 18:43 Home Medications: Ambulatory Orders Ibuprofen [Ibu] 600 mg PO QID PRN #20 tablet 11/05/18 Anemia: No Asthma: No Cancer: No Cardiac Disorders: No CVA: No COPD: No CHF: No DVT: No Diabetes: No Dialysis: No GI Disorders: No Disorders: No HTN: No Hypercholesterolemia: No Kidney Stones: No Liver Disease: No Psychiatric Problems: No Seizures: No Thyroid Disease: No Lung CA: No - Immunization History Immunization Up to Date: Yes - Suicide/Smoking/Psychosocial Hx Smoking History: Never smoked Have you smoked in the past 12 months: No Hx Alcohol Use: No Drug/Substance Use Hx: No *Physical Exam - Vital Signs Last Vital Signs Temp Pulse Resp BP Pulse Ox 98 F 66 18 121/34 L 99 02/05/19 18:39 02/05/19 18:39 02/05/19 18:39 02/05/19 18:39 02/05/19 18:39 Moderate Sedation - Procedure Monitoring Vital Signs: Procedure Monitoring Vital Signs Temperature 98 F 02/05/19 18:39 Pulse Rate 66 02/05/19 18:39 Respiratory Rate 18 02/05/19 18:39 Blood Pressure 121/34 L 02/05/19 18:39 O2 Sat by Pulse Oximetry (%) 99 02/05/19 18:39 Medical Decision Making - Medical Decision Making 02/05/19 21:14 02/05/19 21:06 Patient is a 18 year old male with no pmhx c/o of palpitations, shortness of breath, lightheadedness, chest pain which has been intermittent X >3 months. Patient states that he occasionally has these symptoms on awakening from sleep, or just sitting tying to do nothing. States he has issue with anxiety but just wanted to come to check him self. States the chest pain is pressure, 4/10, nonpleuritic, nonexertional, assoc/w sob, sweaty palms, lightheadness. He has been evaluated in the ED and by cardiology at this hosp for the chest pain but has not followed up with cardiology for additional workup. States has that he has symptoms last night at 3 am in the morning, and today has symptoms which started about 4 pm, episode lasting for a few minutes. He currently has no symptoms. Famhx neg for CVA/MN, DVY/PE. No sudden cardiac . No recent travel. patient is PERC neg. low concern for ACS. concerns for anxiety EKG done SR rate 56, NAD, (-) ST-T wave change, unchanged from prior. I discussed the physical exam findings, ancillary test results and final diagnoses with the patient. I answered all of the patient's questions. The patient was satisfied with the care received and felt comfortable with the discharge plan and treatment plan. The Patient agrees to follow up with the primary care physician within 24-72 hours. *DC/Admit/Observation/Transfer Diagnosis at time of Disposition: Palpitations, Lightheadedness Headache Qualifiers: Headache type: tension-type Headache chronicity pattern: episodic headache Intractability: not intractable Qualified Code(s): G44.219 - Episodic tension- type headache, not intractable Chest pain Qualifiers: Chest pain type: unspecified Qualified Code(s): R07.9 - Chest pain, unspecified - Discharge Dispostion Disposition: HOME Condition at time of disposition: Stable - Referrals Referrals: Julio Cote MD [Staff Physician] - - Patient Instructions Printed Discharge Instructions: DI for Atypical Chest Pain, DI for Palpitations Additional Instructions: Your Discharge Instructions: You must call primary care physician within 24 hours to arrange follow-up. Return to the Emergency Department with any new, persistent or worsening symptoms, for fever, chills, SOB, dizziness or any other concerning changes that may occur. - Post Discharge Activity
--- NOTE | 2019-02-06 22:49 | EKG ---
Test Reason : Blood Pressure : / mmHG Vent. Rate : 056 BPM Atrial Rate : 056 BPM P-R Int : 114 ms QRS Dur : 098 ms QT Int : 404 ms P-R-T Axes : 028 065 041 degrees QTc Int : 389 ms SINUS BRADYCARDIA MINIMAL VOLTAGE CRITERIA FOR LVH, MAY BE NORMAL VARIANT BORDERLINE ECG WHEN COMPARED WITH ECG OF 23-NOV-2018 07:58, NO SIGNIFICANT CHANGE WAS FOUND Confirmed by KATHY URIBE, KESHAV ([id number]) on 02/06/2019 10:49:03 PM Referred By: Confirmed By:KESHAV CHAVEZ MD
== END 2019-02-05 21:27 | disposition home or self-care (01) ==
LOC: JER 18:35
DX: R07.9 Chest pain, unspecified (principal); G44.219 Episodic tension-type headache, not intractable
CPT/HCPCS: 93005; 93010; 99283-25

== ENCOUNTER 2019-11-06 14:52 | Emergency (ER) | payer OTHER ==
[2019-11-06] MEDS ORDERED: ACETAMINOPHEN 500 MG TABLET (FP) PO ONE (14:55)
--- NOTE | 2019-11-06 14:55 | PDOC ---
Rapid Medical Evaluation Time Seen by Provider: 11/06/19 14:53 Medical Evaluation: Allergies Allergy/AdvReac Type Severity Reaction Status Date / Time shellfish derived Allergy Verified 02/05/19 18:43 11/06/19 14:53 This patient received a in-person evaluation in triage cc/HPI: headache x 1 week with no blurred vision, no dizziness or nausea took no medication so far PE: NAD lungs clear bilaterally neuro: PERRLA, EOMI, alert and oriented x 3, moving all limbs freely orders:analgesia ordered This patient will proceed to ED for further evaluation Discharge Disposition - Diagnosis Headache Qualifiers: Headache type: unspecified Headache chronicity pattern: acute headache Intractability: not intractable Qualified Code(s): R51 - Headache - Discharge Dispostion Disposition: HOME Condition at time of disposition: Stable - Referrals Referrals: Og Wheeler MD [Staff Physician] - Ray Vidales MD [Primary Care Provider] - - Patient Instructions Additional Instructions: Tylenol and Motrin as directed for your headaches. Return to the emergency room for worsening symptoms. Without fail follow-up with neurology in 2 to 3 days for further evaluation and treatment options. - Post Discharge Activity Work/School Note: Back to Work
[2019-11-06 14:57] VITALS: BP 129/70; PULSE 92; TEMP 98.2; BMI 20.7
[2019-11-06] MEDS ORDERED: ACETAMINOPHEN 325 MG TABLET (FP) ONE (16:02)
--- NOTE | 2019-11-06 16:47 | PDOC ---
History of Present Illness - General Chief Complaint: Headache Stated Complaint: HEADACHE Time Seen by Provider: 11/06/19 14:53 - History of Present Illness Initial Comments: 11/06/19 16:45 19-year-old male with a past medical history of migraines presents for evaluation of headache intermittent over the last week his headache is since resolved he has not taken anything. Past History - Past Medical History Allergies/Adverse Reactions: Allergies Allergy/AdvReac Type Severity Reaction Status Date / Time shellfish derived Allergy Verified 11/06/19 14:54 Home Medications: Ambulatory Orders Ibuprofen [Ibu] 600 mg PO QID PRN #20 tablet 11/05/18 Anemia: No Asthma: No Cancer: No Cardiac Disorders: No CVA: No COPD: No CHF: No DVT: No Diabetes: No Dialysis: No GI Disorders: No Disorders: No HTN: No Hypercholesterolemia: No Kidney Stones: No Liver Disease: No Psychiatric Problems: No Seizures: No Thyroid Disease: No Lung CA: No - Immunization History Immunization Up to Date: Yes - Psycho Social/Smoking Cessation Hx Smoking History: Never smoked Have you smoked in the past 12 months: No Hx Alcohol Use: No Drug/Substance Use Hx: No Review of Systems - Review of Systems Constitutional: No: Fever Neurological: Yes: Headache *Physical Exam - Vital Signs Last Vital Signs Temp Pulse Resp BP Pulse Ox 98.2 F 92 H 16 129/70 96 11/06/19 14:54 11/06/19 14:54 11/06/19 14:54 11/06/19 14:54 11/06/19 14:54 - Physical Exam 11/06/19 16:46 GENERAL: The patient is awake, alert, and fully oriented, in no acute distress. HEAD: Normal with no signs of trauma. EYES: sclera anicteric, conjunctiva clear. ENT: Ears normal tympanic membranes normal oropharynx clear uvula midline NECK: Normal range of motion LUNGS: Breath sounds equal, clear to auscultation bilaterally. No wheezes, and no crackles. HEART: S1 and S2 without murmur, rub or gallop. ABDOMEN: Soft, nontender, normoactive bowel sounds. No guarding, no rebound. No masses. EXTREMITIES: Normal range of motion, no edema. No clubbing or cyanosis. No cords, erythema, or tenderness. NEUROLOGICAL: Cranial nerves II through XII grossly intact. Normal speech, normal gait. PSYCH: Normal mood, normal affect. SKIN: Warm, Dry, normal turgor, no rashes or lesions noted. ED Treatment Course - RADIOLOGY Radiology Studies Ordered: Category Date Time Status HEAD CT WITHOUT CONTRAST [CT] Stat CT Scan 11/06/19 15:23 Completed - Medications Given in the ED: ED Medications Discontinued Medications Generic Name Dose Route Start Last Admin Trade Name Freq PRN Reason Stop Dose Admin Acetaminophen 975 mg 11/06/19 14:55 11/06/19 16:04 Tylenol - PO 11/06/19 14:56 975 mg ONCE ONE Administration Medical Decision Making - Medical Decision Making 11/06/19 16:46 CAT scan findings discussed with patient patient will follow-up with neurology no treatment required in the emergency room patient is pain-free. Discharge - Discharge Information Problems reviewed: Yes Clinical Impression/Diagnosis: Headache Condition: Stable Disposition: HOME - Admission No - Follow up/Referral Referrals: Ray Vidales MD [Primary Care Provider] - Og Wheeler MD [Staff Physician] - - Patient Discharge Instructions Additional Instructions: Tylenol and Motrin as directed for your headaches. Return to the emergency room for worsening symptoms. Without fail follow-up with neurology in 2 to 3 days for further evaluation and treatment options. - Post Discharge Activity
== END 2019-11-06 17:13 | disposition home or self-care (01) ==
LOC: JERFT 14:52
DX: R51 Headache (principal); Z91.013 Allergy to seafood
CPT/HCPCS: 70450-TC; 99281-25

== ENCOUNTER 2019-11-08 03:40 | Emergency (ER) | payer OTHER ==
[2019-11-08 04:09] VITALS: TEMP 98; BMI 21.8
--- NOTE | 2019-11-08 04:22 | PDOC ---
History of Present Illness - General Chief Complaint: Headache Stated Complaint: HEAD PAIN Time Seen by Provider: 11/08/19 04:21 History Source: Patient - History of Present Illness Initial Comments: 11/08/19 [id number] male seen in this ER 2 days ago, complaining of headache for the last 3 days. Patient status post CAT scan here in the ER. CAT scan results negative. Patient reports that he feels his headache is similar to the headache when he had 2 days ago. Denies taking any medication for the pain. Patient is currently working on getting an appointment with neurology. as per patient denies nausea, vomiting, diarrhea, abdominal pain, dizziness, balance issues. Past History - Past Medical History Allergies/Adverse Reactions: Allergies Allergy/AdvReac Type Severity Reaction Status Date / Time shellfish derived Allergy Verified 11/08/19 04:09 Home Medications: Ambulatory Orders Ibuprofen [Ibu] 600 mg PO QID PRN #20 tablet 11/05/18 Anemia: No Asthma: No Cancer: No Cardiac Disorders: No CVA: No COPD: No CHF: No DVT: No Diabetes: No Dialysis: No GI Disorders: No Disorders: No HTN: No Hypercholesterolemia: No Kidney Stones: No Liver Disease: No Psychiatric Problems: No Seizures: No Thyroid Disease: No Lung CA: No - Immunization History Immunization Up to Date: Yes - Psycho Social/Smoking Cessation Hx Smoking History: Never smoked Have you smoked in the past 12 months: No Hx Alcohol Use: No Drug/Substance Use Hx: No Neuro Specific PMHX - Complaint Specific PMHX Glaucoma: No Review of Systems - Review of Systems Able to Perform ROS?: Yes Neurological: Yes: Headache *Physical Exam - Vital Signs Last Vital Signs Temp Pulse Resp BP Pulse Ox 98.0 F 60 18 125/53 L 99 11/08/19 03:50 11/08/19 03:50 11/08/19 03:50 11/08/19 03:50 11/08/19 03:50 - Physical Exam General Appearance: Yes: Appropriately Dressed HEENT: positive: Normal ENT Inspection Respiratory/Chest: positive: Lungs Clear, Normal Breath Sounds Cardiovascular: positive: Regular Rhythm, Regular Rate Rectal Exam: positive: heme negative stool Integumentary: positive: Dry, Warm Neurologic: positive: Fully Oriented, Alert ED Progress Note - Progress Note Progress Note: 11/08/19 05:58 A: headache P: IVF reglan tylenol toradol Medical Decision Making - Medical Decision Making 11/08/19 06:17 patient is now feeling better. referred patient to neurology and pcp 11/08/19 06:19 Discharge - Discharge Information Problems reviewed: Yes Clinical Impression/Diagnosis: Headache Qualifiers: Headache type: unspecified Headache chronicity pattern: acute headache Intractability: not intractable Qualified Code(s): R51 - Headache Condition: Fair - Follow up/Referral Referrals: Ray Vidales MD [Primary Care Provider] - - Patient Discharge Instructions Patient Printed Discharge Instructions: DI for Headache Additional Instructions: Drink plenty of fluids. Take Tylenol every 4 hours or ibuprofen every 6 hours as needed for headache. It is important that you follow-up with a neurologist. A neurology referral was given to you. Return to the emergency room for any worsening symptoms - Post Discharge Activity Work/Back to School Note: Back to Work
--- NOTE | 2019-11-08 04:26 | PDOC ---
*Physical Exam - Vital Signs Last Vital Signs Temp Pulse Resp BP Pulse Ox 98.0 F 60 18 125/53 L 99 11/08/19 03:50 11/08/19 03:50 11/08/19 03:50 11/08/19 03:50 11/08/19 03:50 Medical Decision Making - Medical Decision Making 11/08/19 04:26 Patient seen by the advanced practice provider under my direct supervision. Ancillary testing reviewed as necessary. I agree with plan as outlined by the advanced practice provider. Discharge - Discharge Information Problems reviewed: Yes Clinical Impression/Diagnosis: Headache Qualifiers: Headache type: unspecified Headache chronicity pattern: acute headache Intractability: not intractable Qualified Code(s): R51 - Headache Condition: Fair - Follow up/Referral Referrals: Ray Vidales MD [Primary Care Provider] - - Patient Discharge Instructions - Post Discharge Activity
[2019-11-08] MEDS ORDERED: METOCLOPRAMIDE HCL INJECTION 10 MG/2 ML VIAL IVPB ONE (05:06)
[2019-11-08] MEDS ORDERED: SODIUM CHLORIDE 0.9% 500 ML INFUS.BAG IV ONE (05:06)
[2019-11-08] MEDS ORDERED: METOCLOPRAMIDE HCL INJECTION 10 MG/2 ML VIAL ONE (05:20)
[2019-11-08] MEDS ORDERED: ACETAMINOPHEN INJECTION 100 ML IVPB ONE (05:20)
[2019-11-08] MEDS: ACETAMINOPHEN 500 MG TABLET (FP) PO ONE ×2 (05:29→06:03)
[2019-11-08] MEDS ORDERED: KETOROLAC TROMETHAMINE 30 MG/1 ML VIAL IVPUSH ONE (05:54)
[2019-11-08] MEDS ORDERED: ACETAMINOPHEN 1000 MG/100 ML VIAL (NON FORMULARY) IVPB ONE (05:54)
[2019-11-08] MEDS ORDERED: KETOROLAC TROMETHAMINE 30 MG/1 ML VIAL ONE (06:04)
[2019-11-08 06:30] VITALS: BP 102/67; PULSE 72
== END 2019-11-08 06:29 | disposition home or self-care (01) ==
LOC: JER 03:40
PROC: 3E033NZ Introduction of Analgesics, Hypnotics, Sedatives into Peripheral Vein, Percutaneous Approach (ICD-10-PCS; principal; 2019-11-08)
PROC: 3E033GC Introduction of Other Therapeutic Substance into Peripheral Vein, Percutaneous Approach (ICD-10-PCS; 2019-11-08)
PROC: 3E0333Z Introduction of Anti-inflammatory into Peripheral Vein, Percutaneous Approach (ICD-10-PCS; 2019-11-08)
DX: R51 Headache (principal); Z91.013 Allergy to seafood
CPT/HCPCS: 99282-25; J0131